=== PATIENT | female | born 1960 | race African-American/Black ===

== ENCOUNTER 2019-03-13 08:51 | Emergency (ER) | payer SELFPAY ==
[2019-03-13] MEDS ORDERED: Metoprolol Tartrate 5 MG/5 ML VIAL ONE (09:58)
--- NOTE | 2019-03-13 10:19 | RAD ---
PORTABLE UPRIGHT FRONTAL CHEST RADIOGRAPH: DATE: 03/13/2019. COMPARISON: 11/20/2004. HISTORY: Cough, congestion, and body aches. FINDINGS: No pneumothorax or pleural fluid. No focal consolidation or alveolar edema. Heart and mediastinal c ontours appear within normal limits. IMPRESSION: No acute findings. POS: [facility]
[2019-03-13 10:32] LABS: #Eosinphils 0.1 thou/uL (0.0-0.7); #Lymphocytes 1.7 thou/uL (1.20-3.40); #Monocytes 0.6 thou/uL (0.11-0.59); #Neutrophils 7.9 thou/uL (1.40-6.50); %Basophils 0.4 % (0.0-1.0); %Eosinophils 0.7 % (0.0-10.0); %Lymphocytes 16.5 % (21.0-51.0); %Monocytes 5.5 % (0.0-10.0); %Neutrophils 76.9 % (42.0-75.0); Mean Corpuscular HGB CONC 31.4 g/dL (32.0-36.0); Mean Corpuscular Hemoglobin 25.5 pg (27.0-31.0); Mean Platelet Volume 9.1 fL (7.4-10.4); Platelet Count 251 thou/uL (130-400); RBC Distribution Width 12.6 % (11.5-14.5); White Blood Cell (WBC) Count 10.3 thou/uL (4.8-10.8)
[2019-03-13] MEDS ORDERED: cloNIDine 0.1 MG TAB ONE ×2 (10:50→10:54)
[2019-03-13 10:51] LABS: ALT (SGPT) 22 U/L (8-55); AST (SGOT) 23 U/L (5-34); Albumin 3.9 g/dL (3.5-5.0); Alkaline Phosphatase 74 U/L (40-110); Anion Gap 13 mmol/L (10-20); BUN (Urea Nitrogen) 11 mg/dL (9.8-20.1); Bilirubin, Total 0.4 mg/dL (0.2-1.2); CK (CPK) 434 U/L (29-168); Calc. Creatinine Clearance 0 mL/min (70-130); Calcium 8.8 mg/dL (7.8-10.44); Carbon Dioxide 27 mmol/L (22-29); Chloride 102 mmol/L (98-107); Estimated GFR-MDRD 89; Globulin 3.8 g/dL (2.4-3.5); Glucose 111 mg/dL (70-105); Magnesium 1.9 mg/dL (1.6-2.6); Potassium 3.1 mmol/L (3.5-5.1); Protein, Total 7.7 g/dL (6.0-8.3); Sodium 139 mmol/L (136-145)
== END 2019-03-13 12:05 | disposition home or self-care (01) ==
LOC: ERS 08:51
DX: I10 Essential (primary) hypertension (principal)
CPT/HCPCS: 71045; 80053; 82550; 83735; 84484; 85025; 93005; 96374

== ENCOUNTER 2019-03-16 03:01 | Emergency (ER) | payer SELFPAY ==
[2019-03-16] MEDS ORDERED: Metoprolol Tartrate 5 MG/5 ML VIAL ONE (03:17)
[2019-03-16 05:00] LABS: Bilirubin Negative (Negative); Blood, Urine Trace (Negative); Clarity Clear (Clear); Glucose, Urine (Dipstick) Normal (Negative); Leukocyte 75 Leu/uL (Negative); Nitrite Negative (Negative); Protein, Urine (Dipstick) 50 mg/dL (Neg-Trace); Squamous Epithelial 0-3 HPF (0-3); Urobilinogen Normal mg/dL (Less than 2)
[2019-03-16 05:01] LABS: Bacteria/HPF 1+ HPF (None Seen); Specific Gravity 1.014 (1.002-1.036)
[2019-03-16 05:04] LABS: Pregnancy Test - Urine (BHCG) Negative (Negative); Pregu Control Background? CLEAR/WHITE (CLR/WHITE); Pregu Control Bar Appear? YES (CONTROL BAR)
== END 2019-03-16 05:20 | disposition home or self-care (01) ==
LOC: ERS 03:01
DX: I10 Essential (primary) hypertension (principal); N39.0 Urinary tract infection, site not specified; R00.2 Palpitations
CPT/HCPCS: 81003; 81015; 81025; 93005; 96374